=== PATIENT | male | born 2000 | race Caucasian/White ===

== ENCOUNTER → 2021-03-05 | Outpatient (CLI) | payer BC | LOC: LAB 13:25 | DX: Z20.822 Contact with and (suspected) exposure to COVID-19 (principal) ==

== ENCOUNTER → 2023-08-09 | Outpatient (CLI) | payer BC ==
[2023-08-09 09:49] LABS: BASO # 0.03 K/mm3 (0.02-0.10); EOS # 0.34 K/mm3 (0.04-0.40); EOS % 6.8 % (0.0-4.0); HEMATOCRIT 47.1 % (42.0-52.0); HEMOGLOBIN 16.4 g/dL (13.5-18.0); LYMPH# 1.66 K/mm3 (1.50-4.00); MEAN CELL VOLUME 85 fl (78-100); MEAN CORPUSCULAR HEMOGLOBIN 29 pg (27-31); MEAN CORPUSCULAR HGB CONC 35 g/dL (33-37); MEAN PLATELET VOLUME 9.1 fl (7.4-10.4); MONO # 0.39 K/mm3 (0.20-0.80); PLATELET COUNT 288 K/mm3 (130-400); RED BLOOD COUNT 5.57 M/mm3 (4.20-5.60); RED CELL DISTRIBUTION WIDTH 12.3 % (11.5-14.5)
[2023-08-09 09:54] LABS: ALBUMIN 4.7 g/dL (3.5-5.0)
[2023-08-09 09:55] LABS: CALCIUM 9.5 mg/dL (8.3-10.5)
[2023-08-09 09:56] LABS: TOTAL PROTEIN 7.7 g/dL (6.4-8.3)
[2023-08-09 10:02] LABS: TOTAL BILIRUBIN 2.3 mg/dL (0.2-1.2)
== END ==
LOC: LAB 09:33
PROVIDERS: Nurse Practitioner
DX: Z00.00 Encounter for general adult medical examination without abnormal findings (principal)